=== PATIENT | female | born 1950 | race Caucasian/White ===

== ENCOUNTER → 2023-01-11 | Outpatient (CLI) | payer OTHER ==
[~2023-01-11] MED LIST: LEVSOD25 PO; MECL25 PO
== END ==
LOC: LAB SHORT 12:37 → LAB 12:37
DX: Z12.4 Encounter for screening for malignant neoplasm of cervix (principal)
CPT/HCPCS: G0145

== ENCOUNTER → 2024-07-17 | Outpatient (CLI) | payer OTHER ==
[2024-07-17 14:29] LABS: BASOPHILS ABSOLUTE AUTO 0.02 K/mm3 (0.00-0.23); BASOPHILS PERCENT AUTO 0 % (0-2); EOSINOPHILS ABSOLUTE AUTO 0.09 K/mm3 (0.00-0.68); EOSINOPHILS PERCENT AUTO 2 % (0-6); Hematocrit 40.3 % (33.0-51.0); Hemoglobin 13.8 g/dL (11.5-16.0); IMMATURE GRAN ABSOLUTE AUTO 0.01 K/mm3 (0.00-0.10); IMMATURE GRAN PERCENT AUTO 0 % (0-1); LYMPHOCYTES ABSOLUTE AUTO 1.29 K/mm3 (0.84-5.20); LYMPHOCYTES PERCENT AUTO 23 % (21-46); MONOCYTES ABSOLUTE AUTO 0.49 K/mm3 (0.16-1.47); MONOCYTES PERCENT AUTO 9 % (4-13); Mean Corpuscular HGB 30.6 pg (26.0-34.0); Mean Corpuscular HGB Conc 34.2 g/dL (31.5-36.5); Mean Corpuscular Volume 89 fL (80-100); Mean Platelet Volume 12.1 fL (9.1-12.4); NEUTROPHILS ABSOLUTE AUTO 3.81 K/mm3 (1.96-9.15); NEUTROPHILS PERCENT AUTO 67 % (41-73); Platelet Count 210 K/mm3 (150-400); RDW Coefficient Variation 12.5 % (11.7-14.2); RDW Standard Deviation 41.4 fL (35.1-46.3); Red Blood Cell Count 4.51 M/mm3 (3.80-5.20); White Blood Cell Count 5.71 K/mm3 (4.00-11.30)
[2024-07-17 14:36] LABS: Bun/Creatinine Ratio 12.3 (12.0-20.0); Calcium, Blood 8.7 mg/dL (8.5-10.1); Creatinine, Blood 0.73 mg/dL (0.40-1.00)
== END | disposition home or self-care (01) ==
LOC: LAB SHORT 14:25 → LAB 14:25
PROVIDERS: Physician Assistant Medical
DX: K92.1 Melena (principal)
CPT/HCPCS: 80048; 85025

== ENCOUNTER 2025-03-26 12:55 | Day surgery (SDC) | payer OTHER ==
[~2025-03-26] VITALS: Ht 157.5 cm; Wt 64.4 kg
[~2025-03-26 12:55] MED LIST changes: +Atropine Sulfate 0.1 MG/ML 10ML SYR ONE; +Glycopyrrolate 0.2 MG/ML 1MLVIAL ONE; +Lactated Ringer's 1,000 ML IV ONE; +Lidocaine 2% 5 ML SDV ONE; +Lidocaine HCl/Pf 1% 5 ML VIAL ONE; +Ondansetron HCl 2 MG / ML 2ML Vial ONE; +ePHEDrine Sulfate 50 MG/ML 1ML Injection ONE; +propofoL 50 ML IV ONE
[2025-03-26] MEDS ORDERED: LIOT5 (14:24)
[2025-03-26] MEDS ORDERED: Lactated Ringer's 1,000 ML IV ONE (15:25)
[2025-03-26 16:57] VITALS: BP 137/73
== END 2025-03-26 16:50 | disposition home or self-care (01) ==
LOC: ORSCSDS 12:55
PROVIDERS: Internal Medicine Gastroenterology
PROC: 0DJD8ZZ Inspection of Lower Intestinal Tract, Via Natural or Artificial Opening Endoscopic (ICD-10-PCS; principal; 2025-03-26 14:15)
DX: R14.0 Abdominal distension (gaseous) (principal); K57.30 Diverticulosis of large intestine without perforation or abscess without bleeding; Z86.0102 Personal history of hyperplastic colon polyps; Z87.19 Personal history of other diseases of the digestive system; Z79.899 Other long term (current) drug therapy
CPT/HCPCS: J0461; J2003; J2405; J2704; J7120

== ENCOUNTER 2025-09-27 18:56 | Inpatient (IN) | payer OTHER ==
[~2025-09-27] VITALS: Ht 167.6 cm; Wt 67.9 kg
[~2025-09-27 18:56] MED LIST changes: -Atropine Sulfate 0.1 MG/ML 10ML SYR ONE; -Glycopyrrolate 0.2 MG/ML 1MLVIAL ONE; +LIOT5; -Lactated Ringer's 1,000 ML IV ONE; -Lidocaine 2% 5 ML SDV ONE; -Lidocaine HCl/Pf 1% 5 ML VIAL ONE; -Ondansetron HCl 2 MG / ML 2ML Vial ONE; -ePHEDrine Sulfate 50 MG/ML 1ML Injection ONE; -propofoL 50 ML IV ONE
[2025-09-27 19:47] LABS: Source, Urine Clean Catch
[2025-09-27 19:52] LABS: Bilirubin, Urine Neg (Neg); Color, Urine Yellow (P-Yellow); Glucose Qualitative, Urine Neg (Neg); Ketones, Urine 3+ (Neg); Leukocyte Esterase, Urine 1+ (Neg); Protein, Urine Neg (Neg); Specific Gravity, Urine 1.010 (1.003-1.022); Urobilinogen, Urine NORM (Normal)
[2025-09-27 20:06] LABS: BASOPHILS ABSOLUTE AUTO 0.03 K/mm3 (0.00-0.23); BASOPHILS PERCENT AUTO 0 % (0-2); EOSINOPHILS ABSOLUTE AUTO 0.06 K/mm3 (0.00-0.68); EOSINOPHILS PERCENT AUTO 1 % (0-6); Hematocrit 37.8 % (33.0-51.0); Hemoglobin 13.0 g/dL (11.5-16.0); IMMATURE GRAN ABSOLUTE AUTO 0.02 K/mm3 (0.00-0.10); IMMATURE GRAN PERCENT AUTO 0 % (0-1); LYMPHOCYTES ABSOLUTE AUTO 0.96 K/mm3 (0.84-5.20); LYMPHOCYTES PERCENT AUTO 11 % (21-46); MONOCYTES ABSOLUTE AUTO 0.70 K/mm3 (0.16-1.47); MONOCYTES PERCENT AUTO 8 % (4-13); Mean Corpuscular HGB Conc 34.4 g/dL (31.5-36.5); Mean Corpuscular Volume 86 fL (80-100); NEUTROPHILS ABSOLUTE AUTO 7.23 K/mm3 (1.96-9.15); NEUTROPHILS PERCENT AUTO 80 % (41-73); NRBC ABSOLUTE 0.00 K/mm3 (0.00-0.02); NRBC Auto 0.0 /100 WBC (0.0-0.2); Platelet Count 196 K/mm3 (150-400); RDW Coefficient Variation 12.6 % (11.7-14.2); RDW Standard Deviation 40.1 fL (35.1-46.3)
[2025-09-27 20:25] LABS: Alanine Aminotransfer (ALT/SGP 23.0 U/L (12-78); Albumin, Blood 4.1 g/dL (3.4-5.0); Albumin/Globulin Ratio 1.1 (0.8-1.8); Anion Gap 10.0 mmol/L (3-11); Aspartate Aminotrans (AST/SGOT 21.0 U/L (12-37); Bilirubin, Total 0.5 mg/dL (0.1-1.0); Blood Urea Nitrogen 6.0 mg/dL (8-24); CO2, Blood 26.0 mmol/L (21-32); Calcium, Blood 9.3 mg/dL (8.5-10.1); Chloride, Blood 100.0 mmol/L (98-108); Creatinine, Blood 0.61 mg/dL (0.40-1.00); Globulin, Blood 3.6 g/dL (2.2-4.0); Glucose, Blood 115.0 mg/dL (70-99); Potassium, Blood 4.0 mmol/L (3.5-5.5); Sodium, Blood 132.0 mmol/L (136-145); Total Protein, Blood 7.7 g/dL (6.4-8.2)
[2025-09-27] MEDS ORDERED: Ondansetron HCl 2 MG / ML 2ML Vial IV ONE (22:15)
[2025-09-27] MEDS ORDERED: HYDROmorphone HCl/Pf 1MG SYR IV ONE (22:15)
[2025-09-27] MEDS ORDERED: NS 1,000 ML IV SCH (22:20)
[2025-09-27] MEDS ORDERED: Ampicillin Sod/Sulbactam Sod 3 GM in NS 100 ML IV ONE (22:20)
[2025-09-27] MEDS ORDERED: FLU VACC TS2025-26(6MOS UP)/PF 45 MCG/0.5 ML SYRINGE IM SCH (22:40)
[2025-09-27] MEDS ORDERED: Ondansetron HCl 2 MG / ML 2ML Vial IV PRN (22:40)
[2025-09-27] MEDS ORDERED: HYDROmorphone HCl/Pf 1MG SYR IV PRN ×2 (22:55→23:15)
[2025-09-27] MEDS ORDERED: Naloxone HCl 0.4MG / ML 1ML Vial IV PRN (23:20)
[2025-09-27] MEDS ORDERED: Ketorolac Tromethamine 15mg Vial IV PRN (23:45)
[2025-09-28 00:40] VITALS: BP 144/60
[2025-09-28] MEDS ORDERED: SYNTHROID75 MCG PO (00:55)
[2025-09-28] MEDS ORDERED: IBUP800 PO (00:56)
[2025-09-28] MEDS ORDERED: LIOT5 PO (00:56)
--- NOTE | 2025-09-28 01:42 | NUR ---
TRANSFER NOTE THIS RN RECEIVED REPORT FROM MAXINE QUESADA IN THE ED. PT TRANSFERRED TO PCU 17. AMBULATED FROM [facility] TO BED. STEADY GAIT. REPORTING THAT PAIN IS IN LOWER ABDOMEN EXTENDING ACCROSS RLQ AND LLQ, "FEELS LIKE DEEP PRESSURE", BUT COMES AND GOES. MEDICATED PER EMAR WITH TORADOL AT THIS TIME. ON RA. SR ON MONITOR. BP STABLE. EDUCATED ON NPO STATUS. A&O X4. PT ABLE TO MAKE NEEDS KNOWN. INDEPENDENT WITH ADL'S. BED IN LOWEST POSITION AND CALL LIGHT WITHIN REACH.
[2025-09-28] MEDS ORDERED: Piperacillin/Tazobactam Sod 3.375 GM in NS 100 ML IV SCH ×2 (02:00→08:00)
[2025-09-28 04:06] LABS: BASOPHILS ABSOLUTE AUTO 0.02 K/mm3 (0.00-0.23); BASOPHILS PERCENT AUTO 0 % (0-2); EOSINOPHILS ABSOLUTE AUTO 0.05 K/mm3 (0.00-0.68); EOSINOPHILS PERCENT AUTO 1 % (0-6); Hematocrit 35.3 % (33.0-51.0); Hemoglobin 12.1 g/dL (11.5-16.0); IMMATURE GRAN ABSOLUTE AUTO 0.01 K/mm3 (0.00-0.10); IMMATURE GRAN PERCENT AUTO 0 % (0-1); LYMPHOCYTES ABSOLUTE AUTO 1.18 K/mm3 (0.84-5.20); LYMPHOCYTES PERCENT AUTO 15 % (21-46); MONOCYTES ABSOLUTE AUTO 0.73 K/mm3 (0.16-1.47); MONOCYTES PERCENT AUTO 10 % (4-13); Mean Corpuscular HGB Conc 34.3 g/dL (31.5-36.5); Mean Corpuscular Volume 87 fL (80-100); NEUTROPHILS ABSOLUTE AUTO 5.65 K/mm3 (1.96-9.15); NEUTROPHILS PERCENT AUTO 74 % (41-73); NRBC ABSOLUTE 0.00 K/mm3 (0.00-0.02); NRBC Auto 0.0 /100 WBC (0.0-0.2); Platelet Count 169 K/mm3 (150-400); RDW Coefficient Variation 12.7 % (11.7-14.2); RDW Standard Deviation 41.0 fL (35.1-46.3)
[2025-09-28 04:21] VITALS: BP 107/50
[2025-09-28 04:54] LABS: Alanine Aminotransfer (ALT/SGP 17.0 U/L (12-78); Albumin, Blood 3.4 g/dL (3.4-5.0); Albumin/Globulin Ratio 1.1 (0.8-1.8); Anion Gap 11.0 mmol/L (3-11); Aspartate Aminotrans (AST/SGOT 15.0 U/L (12-37); Bilirubin, Total 0.6 mg/dL (0.1-1.0); Blood Urea Nitrogen 6.0 mg/dL (8-24); CO2, Blood 23.0 mmol/L (21-32); Calcium, Blood 8.6 mg/dL (8.5-10.1); Chloride, Blood 106.0 mmol/L (98-108); Creatinine, Blood 0.7 mg/dL (0.40-1.00); Globulin, Blood 3.0 g/dL (2.2-4.0); Glucose, Blood 123.0 mg/dL (70-99); Magnesium, Blood 2.2 mg/dL (1.6-2.4); Potassium, Blood 3.9 mmol/L (3.5-5.5); Sodium, Blood 136.0 mmol/L (136-145); Total Protein, Blood 6.4 g/dL (6.4-8.2)
--- NOTE | 2025-09-28 05:40 | NUR ---
SHIFT SUMMARY SEE PREVIOUS NOTE. NO ACUTE CHANGES OVERNIGHT. PT ONLY REPORTING VERY BRIEF SHARP PAIN THAT SHE DESCRIBED "GAS PAIN". PT HAS NOT NEEDED FURTHER PAIN MEDICATION. VSS. IND WITH ADL'S. BED IN LOWEST POSITION AND CALL LIGHT WITHIN REACH. THIS RN WILL REPORT TO ONCOMING DAYSHIFT RN.
[2025-09-28 08:00] VITALS: BP 111/50
--- NOTE | 2025-09-28 10:57 | NUR ---
Pt. is awake in bed and welcomes my visit. Pt. was guarded at first, but through facilitating a life review and identifying [place] community connections rapport is established. Considered matters of harman and belief. Listened with empathy and interest. Pt. verbalized expectations for the next couple of days as well as the excellent care and interactions she has had on this hospital visit. Prayed with the Pt. Pt. verbalized gratitude for the spiritual care visit.
--- NOTE | 2025-09-28 11:19 | NUR ---
UPDATE: DR BRUNER AT BEDSIDE, PT MADE SURGICAL STATUS. CLEAR LIQUID DIET. SURGICAL CONSULTED TODAY FOR DIVERTICULITIS. VSS. PT LYING IN BED, ENCOURAGED TO AMBULATE. AT BEDSIDE. CALL WITHIN REACH.
[2025-09-28 11:22] VITALS: BP 143/70
--- NOTE | 2025-09-28 16:01 | NUR ---
SHIFT SUMMARY: PT A/O X4, ABLE TO MAKE NEEDS KNOWN. ALL STRENGTH EQUAL BILATERALLY. INDEP IN ROOM. MEDICATED PT ONCE PER EMAR THIS SHIFT FOR ABDOMINAL PAIN. PT ALSO REPORTS CHRONIC SHOULDER/BACK PAIN. NSR 60s, DENIES CHEST PAIN/PRESSURE. ROOM AIR, SATS >95%, DENIES SOB. AFEBRILE, OTHER VSS. MD AT BEDSIDE, PLAN TO CONTINUE IV ABX. OFFERED PT SHOWER TODAY, PT STATED BEING "TOO TIRED", AND WILL OPT FOR TOMORROW. PT REMAINS ON CLEAR LIQUID DIET, TOLERATING WELL. CURRENTLY LYING IN BED, CALL WITHIN REACH. WILL REPORT TO ONCOMING RN.
[2025-09-28 16:23] VITALS: BP 136/68
[2025-09-28 21:36] VITALS: BP 137/72
[2025-09-29 03:27] VITALS: BP 110/58
--- NOTE | 2025-09-29 03:34 | NUR ---
SHIFT SUMMARY: NO ACUTE CHANGES DURING TONIGHTS NIGHTSHIFT. PATIENT IS A&OX4. SHE REPORTED "UNCOMFORTABLE GAS PAIN" IN HER ABD THIS MORNING, PRN PAIN MEDICATIONS WERE OFFERED, BUT PATIENT DENIED WANTING PAIN MEDS AT THIS TIME. OTHERWISE THIS MORNINGS PAIN, PATIENT HAS DENIED PAIN MAJORITY OF THE SHIFT. VITALS ARE STABLE AND IS ON ROOM AIR WITH >90% SPO2. PATIENT IS INDEP. WITH ADL'S UNLESS HAS IV ABX RUNNING WHICH SHE NEEDS HELP WITH IV POLE/LINE MANAGEMENT. PATIENT IS LAYING IN BED WITH CALL LIGHT IN REACH. PATIENT IS ABLE TO MAKE HER NEEDS KNOWN AND CALLS APPROPRIATELY.
[2025-09-29 04:00] LABS: BASOPHILS ABSOLUTE AUTO 0.03 K/mm3 (0.00-0.23); BASOPHILS PERCENT AUTO 1 % (0-2); EOSINOPHILS ABSOLUTE AUTO 0.10 K/mm3 (0.00-0.68); EOSINOPHILS PERCENT AUTO 2 % (0-6); Hematocrit 32.9 % (33.0-51.0); Hemoglobin 11.0 g/dL (11.5-16.0); IMMATURE GRAN ABSOLUTE AUTO 0.02 K/mm3 (0.00-0.10); IMMATURE GRAN PERCENT AUTO 0 % (0-1); LYMPHOCYTES ABSOLUTE AUTO 1.06 K/mm3 (0.84-5.20); LYMPHOCYTES PERCENT AUTO 21 % (21-46); MONOCYTES ABSOLUTE AUTO 0.46 K/mm3 (0.16-1.47); MONOCYTES PERCENT AUTO 9 % (4-13); Mean Corpuscular HGB Conc 33.4 g/dL (31.5-36.5); Mean Corpuscular Volume 89 fL (80-100); NEUTROPHILS ABSOLUTE AUTO 3.42 K/mm3 (1.96-9.15); NEUTROPHILS PERCENT AUTO 67 % (41-73); NRBC ABSOLUTE 0.00 K/mm3 (0.00-0.02); NRBC Auto 0.0 /100 WBC (0.0-0.2); Platelet Count 170 K/mm3 (150-400); RDW Coefficient Variation 12.6 % (11.7-14.2); RDW Standard Deviation 41.1 fL (35.1-46.3)
[2025-09-29 04:23] LABS: Alanine Aminotransfer (ALT/SGP 17.0 U/L (12-78); Albumin, Blood 3.1 g/dL (3.4-5.0); Albumin/Globulin Ratio 1.0 (0.8-1.8); Anion Gap 10.0 mmol/L (3-11); Aspartate Aminotrans (AST/SGOT 15.0 U/L (12-37); Bilirubin, Total 0.6 mg/dL (0.1-1.0); Blood Urea Nitrogen 7.0 mg/dL (8-24); CO2, Blood 25.0 mmol/L (21-32); Calcium, Blood 8.8 mg/dL (8.5-10.1); Chloride, Blood 105.0 mmol/L (98-108); Creatinine, Blood 0.63 mg/dL (0.40-1.00); Globulin, Blood 3.1 g/dL (2.2-4.0); Glucose, Blood 96.0 mg/dL (70-99); Potassium, Blood 3.8 mmol/L (3.5-5.5); Sodium, Blood 136.0 mmol/L (136-145); Total Protein, Blood 6.2 g/dL (6.4-8.2)
[2025-09-29 08:03] VITALS: BP 124/61
[2025-09-29 15:17] VITALS: BP 126/60
--- NOTE | 2025-09-29 17:55 | NUR ---
SHIFT SUMMARY PT A&OX4, PLEASANT. VSS. SP02>90% 0N RA. SURGICAL STATUS, NO TELEMETRY. DIET PROGRESSED TO FULL LIQUID. PREFERS VEGETARIAN, SUGAR FREE DIET. REFUSES SUGAR FREE FOODS THAT ARE PROCESSED. ABLE TO TOLERATE UNSWEETENED APPLESAUCE. C/O OF SHOULDER PAIN, DENIED PAIN MEDICATION. UP IN ROOM INDEPENDENTLY. MULITPLE LOOSE BOWEL MOVEMENTS THIS EVENING. PT STATES ABD GAS IS PAINFUL, APPLIED HOME DOTERRA OIL ON ABD TO HELP "FLUSH" HER SYSTEM. PT W/ HOME HYPOTHYROID MEDICAITON. PHARMACY CALLED. PHARMACY W/ ORDERS TO TAKE HOSPITALS MED, NOT HOME MED. PT EDUCATED AND ASKED TO SEND HOME MEDICAITONS HOME WITH . VISIT THIS AFTERNOON. NEW IV PLACED.
[2025-09-29 19:58] VITALS: BP 128/72
[2025-09-30 03:43] VITALS: BP 139/50
[2025-09-30 03:48] LABS: BASOPHILS ABSOLUTE AUTO 0.02 K/mm3 (0.00-0.23); BASOPHILS PERCENT AUTO 1 % (0-2); EOSINOPHILS ABSOLUTE AUTO 0.11 K/mm3 (0.00-0.68); EOSINOPHILS PERCENT AUTO 3 % (0-6); Hematocrit 34.3 % (33.0-51.0); Hemoglobin 11.9 g/dL (11.5-16.0); IMMATURE GRAN ABSOLUTE AUTO 0.01 K/mm3 (0.00-0.10); IMMATURE GRAN PERCENT AUTO 0 % (0-1); LYMPHOCYTES ABSOLUTE AUTO 1.19 K/mm3 (0.84-5.20); LYMPHOCYTES PERCENT AUTO 30 % (21-46); MONOCYTES ABSOLUTE AUTO 0.42 K/mm3 (0.16-1.47); MONOCYTES PERCENT AUTO 10 % (4-13); Mean Corpuscular HGB Conc 34.7 g/dL (31.5-36.5); Mean Corpuscular Volume 88 fL (80-100); NEUTROPHILS ABSOLUTE AUTO 2.29 K/mm3 (1.96-9.15); NEUTROPHILS PERCENT AUTO 57 % (41-73); NRBC ABSOLUTE 0.00 K/mm3 (0.00-0.02); NRBC Auto 0.0 /100 WBC (0.0-0.2); Platelet Count 192 K/mm3 (150-400); RDW Coefficient Variation 12.7 % (11.7-14.2); RDW Standard Deviation 41.0 fL (35.1-46.3)
[2025-09-30 04:20] LABS: Anion Gap 9.0 mmol/L (3-11); Blood Urea Nitrogen 4.0 mg/dL (8-24); CO2, Blood 25.0 mmol/L (21-32); Calcium, Blood 9.2 mg/dL (8.5-10.1); Chloride, Blood 107.0 mmol/L (98-108); Creatinine, Blood 0.62 mg/dL (0.40-1.00); Glucose, Blood 109.0 mg/dL (70-99); Potassium, Blood 3.9 mmol/L (3.5-5.5); Sodium, Blood 137.0 mmol/L (136-145)
--- NOTE | 2025-09-30 04:44 | NUR ---
SHIFT SUMMARY: PATIENT IS A&OX4. VITALS ARE STABLE AND IS ON ROOM AIR WITH >90% SPO2. PATIENT REPORTED HAVING 4/10 ABD PAIN THIS MORNING AFTER USING THE BATHROOM. PATIENT STATED "IT FEELS LIKE A BURNING SENSATION ON THE LEFT SIDE OF MY COLON WHICH IS NEW FOR ME." PATIENT ALSO REPORTED HAVING BROWN LIQUID STOOL AND YELLOW URINE WHEN USING THE BATHROOM. WHEN OFFERING PATIENT HER PRN PAIN MEDS PER JAN, PATIENT DECLINED THE PAIN MEDS FOR NOW. PATIENT IS INDEP. WITH ADL'S IN THE ROOM. PATIENT IS CURRENTLY LAYING IN BED WITH CALL LIGHT IN REACH. PATIENT IS ABLE TO MAKE HER NEEDS KNOWN AND CALLS APPROPRIATELY.
[2025-09-30 08:31] VITALS: BP 144/71
[2025-09-30 15:14] VITALS: BP 146/69
--- NOTE | 2025-09-30 18:00 | NUR ---
SHIFT SUMMARY PT A&OX4, PLEASANT. VSS. INDEPENDENT IN ROOM. ABX INFUSED PER EMAR. BROUGHT IN HOME FOOD. PT EAGER TO DC IN AM. UP IN RECLINER READING BOOK, WILL GIVE REPORT TO MEDICAL FLOOR RN.
--- NOTE | 2025-09-30 18:59 | NUR ---
PT ARRIVED TO ROOM AT 1855. DIPAK MACEDO RECIEVED REPORT PROIR TO TRANSFER. PT AOX4 AND COOPERATIVE OF CARE. PT SETTLED INTO ROOM WITH CALL LIGHT IN REACH AND BED IN LOWEST POSITION.
[2025-09-30 20:07] VITALS: BP 144/72
[2025-09-30] MEDS ORDERED: NS 250 ML IV PRN (23:30)
[2025-10-01 04:17] VITALS: BP 117/59
--- NOTE | 2025-10-01 05:07 | NUR ---
SHIFT SUMMARY: PT AOX4 IND IN THE ROOM, NEEDING ASSISTANCE WHILE HOOKED UP TO THE IV. PT TOLERATING MEDICATIONS AND DIET WELL. DENIES ANY PAIN, SOB, OR CP. PT VERY PLEASANT AND COOPERATIVE IN CARE. EAGER TO GO HOME THIS MORNING. NO ACUTE OVERNIGHT EVENTS. PT IN BED RESTING, BED IN LOWEST POSITION, CALL LIGHT IN REACH. CONTINUING CARE.
[2025-10-01 07:15] VITALS: BP 117/60
[2025-10-01] MEDS ORDERED: VISBIOME 112.51 EACH PO (11:59)
[2025-10-01] MEDS ORDERED: METR500 PO (11:59)
[2025-10-01] MEDS ORDERED: AMOCLA875 PO (11:59)
[2025-10-01] MEDS ORDERED: DOCU100 PO (12:00)
--- NOTE | 2025-10-01 13:18 | NUR ---
DISCHARGE PT DISCHARGED HOME. DISCHARGE PACKET/EDUCATION REVIEWED WITH PT, ALL QUESTIONS ANSWERED. NEW RX FAXED TO [facility] AND REVIEWED WITH PT. EDUCATED RE LOW FIBER HIGH PROTIEN DIET. IV REMOVED BY CNA2, SITE APPEARS WNL. PT ABLE TO STAND AND AMBULATE INDEPENDENTLY TO AND WHEELED DOWN BY AVAILABLE RN.
== END 2025-10-01 13:13 | disposition home or self-care (01) | DRG 392 ==
LOC: ER 18:56 → PCU 18:57 → ERHOLD 18:57 → PCU 09-28 00:34 → MEDS 09-30 18:48 → ENPENDDIS 10-01 11:07 → MEDS 10-01 13:13
PROVIDERS: Internal Medicine; Student in an Organized Health Care Education/Training Program; ADMIT Student in an Organized Health Care Education/Training Program
DX: K57.20 Diverticulitis of large intestine with perforation and abscess without bleeding (principal); N30.00 Acute cystitis without hematuria; E03.9 Hypothyroidism, unspecified; K20.90 Esophagitis, unspecified without bleeding; M79.7 Fibromyalgia; Z87.19 Personal history of other diseases of the digestive system; Z88.8 Allergy status to other drugs, medicaments and biological substances; Z88.5 Allergy status to narcotic agent; Z79.890 Hormone replacement therapy; Z79.899 Other long term (current) drug therapy; Z79.1 Long term (current) use of non-steroidal anti-inflammatories (NSAID); Z23 Encounter for immunization
CPT/HCPCS: 36415; 74177; 80048; 80053; 81001; 83605; 83690; 83735; 85025; 87086; 94762; 96365; 96367; 96375; 96376; 99285-25; A9270; G0378; J0295; J1171; J1885; J2405; J2543; J7030; J7050; Q9967

== ENCOUNTER 2025-10-06 07:58 | Emergency (ER) | payer OTHER ==
[~2025-10-06] VITALS: Ht 157.5 cm; Wt 68.0 kg
[~2025-10-06 07:58] MED LIST changes: +AMOCLA875 PO; +DOCU100 PO; +IBUP800 PO; +LIOT5 PO; +METR500 PO; +SYNTHROID75 MCG PO; +VISBIOME 112.51 EACH PO
[2025-10-06] MEDS ORDERED: Ondansetron HCl 2 MG / ML 2ML Vial IV ONE (08:35)
[2025-10-06] MEDS ORDERED: HYDROmorphone HCl/Pf 1MG SYR IV ONE (08:35)
[2025-10-06] MEDS ORDERED: NS 1,000 ML IV SCH (08:35)
[2025-10-06 08:53] LABS: BASOPHILS ABSOLUTE AUTO 0.02 K/mm3 (0.00-0.23); BASOPHILS PERCENT AUTO 0 % (0-2); EOSINOPHILS ABSOLUTE AUTO 0.06 K/mm3 (0.00-0.68); EOSINOPHILS PERCENT AUTO 1 % (0-6); Hematocrit 41.8 % (33.0-51.0); Hemoglobin 14.4 g/dL (11.5-16.0); IMMATURE GRAN ABSOLUTE AUTO 0.02 K/mm3 (0.00-0.10); IMMATURE GRAN PERCENT AUTO 0 % (0-1); LYMPHOCYTES ABSOLUTE AUTO 1.13 K/mm3 (0.84-5.20); LYMPHOCYTES PERCENT AUTO 17 % (21-46); MONOCYTES ABSOLUTE AUTO 0.56 K/mm3 (0.16-1.47); MONOCYTES PERCENT AUTO 9 % (4-13); Mean Corpuscular HGB Conc 34.4 g/dL (31.5-36.5); Mean Corpuscular Volume 86 fL (80-100); NEUTROPHILS ABSOLUTE AUTO 4.80 K/mm3 (1.96-9.15); NEUTROPHILS PERCENT AUTO 73 % (41-73); NRBC ABSOLUTE 0.00 K/mm3 (0.00-0.02); NRBC Auto 0.0 /100 WBC (0.0-0.2); Platelet Count 276 K/mm3 (150-400); RDW Coefficient Variation 12.6 % (11.7-14.2); RDW Standard Deviation 39.8 fL (35.1-46.3)
[2025-10-06 09:13] LABS: Alanine Aminotransfer (ALT/SGP 30.0 U/L (12-78); Albumin, Blood 4.3 g/dL (3.4-5.0); Albumin/Globulin Ratio 1.3 (0.8-1.8); Anion Gap 12.0 mmol/L (3-11); Aspartate Aminotrans (AST/SGOT 32.0 U/L (12-37); Bilirubin, Total 0.4 mg/dL (0.1-1.0); Blood Urea Nitrogen 8.0 mg/dL (8-24); CO2, Blood 23.0 mmol/L (21-32); Calcium, Blood 9.1 mg/dL (8.5-10.1); Chloride, Blood 102.0 mmol/L (98-108); Creatinine, Blood 0.58 mg/dL (0.40-1.00); Globulin, Blood 3.2 g/dL (2.2-4.0); Glucose, Blood 100.0 mg/dL (70-99); Potassium, Blood 4.1 mmol/L (3.5-5.5); Sodium, Blood 133.0 mmol/L (136-145); Total Protein, Blood 7.5 g/dL (6.4-8.2)
[2025-10-06 10:30] VITALS: BP 140/84
== END 2025-10-06 10:56 | disposition home or self-care (01) ==
LOC: ER 07:58
PROVIDERS: Emergency Medicine
DX: K57.32 Diverticulitis of large intestine without perforation or abscess without bleeding (principal); E03.9 Hypothyroidism, unspecified; Z79.899 Other long term (current) drug therapy; Z88.5 Allergy status to narcotic agent; Z88.1 Allergy status to other antibiotic agents
CPT/HCPCS: 74177; 80053; 85025; J1171; J2405; J7030; Q9967

== ENCOUNTER → 2025-10-17 | Outpatient (CLI) | payer OTHER ==
[2025-10-17 19:04] LABS: Thyroid Stimulating Hormone 1.65 uIU/mL (0.360-4.800)
== END | disposition home or self-care (01) ==
LOC: LAB 17:30 → LAB SHORT 17:30
PROVIDERS: Internal Medicine
DX: E03.9 Hypothyroidism, unspecified (principal)
CPT/HCPCS: 84439; 84443; 84481